=== PATIENT | male | born 1990 | race Caucasian/White ===

== ENCOUNTER → 2017-03-01 | Outpatient (CLI) | payer OTHER | LOC: FIMAGING 16:08 | PROVIDERS: ATTEND Family Medicine | DX: M51.37 Other intervertebral disc degeneration, lumbosacral region (principal); M51.27 Other intervertebral disc displacement, lumbosacral region ==

== ENCOUNTER 2018-01-07 04:10 | Emergency (ER) | payer OTHER ==
[2018-01-07 04:16] VITALS: RESP 18
[2018-01-07] MEDS ORDERED: IPRATROPIUM/ALBUTEROL 3 ML DEYVIAL IH ONE (04:27)
--- NOTE | 2018-01-07 05:39 | EDPHY ---
H & P Stated Complaint: COUGH AND DYSPNEA X 3 DAYS Time Seen by Provider: 01/07/18 04:54 HPI/ROS: Chief Complaint: Cough, shortness of breath HPI: 27-year-old male's had 3 days of cough, nasal congestion, sore throat, mild shortness of breath with coughing. He is bringing up yellowish to whitish sputum. Feels some tightness in his chest. Some subjective fevers and chills. No nausea or vomiting. No abdominal pain. Mild headache. He has no past medical history. Is up-to-date in his immunizations. ROS: 10 point Review of Systems is negative except as noted in the HPI. PMH: None Social History: No smoking, occasional alcohol, no recreational drug use Family History: non-contributory Physical Exam: Gen: Awake, Alert, No Distress HEENT: Nose: no rhinorrhea Eyes: PERRLA, EOMI Mouth: Moist mucosa Neck: Supple, no JVD Chest: nontender, diffuse expiratory wheezing, no focal rales or rhonchi Heart: S1, S2 normal, no murmur Abd: Soft, non-tender, no guarding Back: no CVA tenderness, no midline tenderness Ext: no edema, non-tender Skin: no rash Neuro: CN II-XII intact, Sensation grossly intact, Strength 5/5 in bilateral upper and lower extremities - Personal History Current Tetanus/Diphtheria Vaccine: Yes Current Tetanus Diphtheria and Acellular Pertussis (TDAP): Yes - Medical/Surgical History Hx Asthma: No Hx Chronic Respiratory Disease: No Hx Diabetes: No Hx Cardiac Disease: No Hx Renal Disease: No Hx Cirrhosis: No Hx Alcoholism: No Hx HIV/AIDS: No Hx Splenectomy or Spleen Trauma: No Other PMH: HERNIATED DISC L6 - Social History Smoking Status: Never smoked Constitutional: Initial Vital Signs Temperature (C) 37.1 C 01/07/18 04:12 Heart Rate 110 H 01/07/18 04:12 Respiratory Rate 18 01/07/18 04:12 Blood Pressure 149/93 H 01/07/18 04:12 O2 Sat (%) 92 01/07/18 04:12 O2 Delivery Mode Room Air Allergies/Adverse Reactions: No Known Allergies Allergy (Unverified 03/16/13 19:08) Home Medications: Medication Instructions Recorded Albuterol [Proventil Inhaler HFA 1 - 2 puffs IH Q4H PRN #1 mdi 01/07/18 (*)] Medical Decision Making - Diagnostics Imaging Results: Chest x-ray is negative for acute infiltrate per my interpretation. Imaging: I viewed and interpreted images myself ED Course/Re-evaluation: 27-year-old male presenting with cough, viral type symptoms. Influenza test is negative. Chest x-ray is negative for acute infiltrate. Symptoms consistent with bronchitis. Will start him on albuterol MDI. Tylenol Motrin. Follow up with primary care physician in 3-4 days if symptoms are not improving. - Data Points Laboratory Results: 01/07/18 01/07/18 04:26 04:26 Nasal Influenza A PCR NEGATIVE FOR FLU A (NEGATIVE) Nasal Influenza B PCR NEGATIVE FOR FLU B (NEGATIVE) Influenza A,B Rapid Cancelled Medications Given: Discontinued Medications Albuterol/Ipratropium (Duoneb) 3 ml IH EDNOW ONE Stop: 01/07/18 04:28 Last Admin: 01/07/18 04:39 Dose: 3 ml Departure - Departure Disposition: Home, Routine, Self-Care Clinical Impression: Acute bronchitis Condition: Good Instructions: Acute Bronchitis (ED) Additional Instructions: You may use the albuterol inhaler, 2 puffs every 4 hours as needed for cough or wheeze. Alternate acetaminophen (1000 mg) with ibuprofen (400 mg) every 4 hours as needed for fevers, chills, aches or pain. It is fine to use [id number] cough and cold medicines per package instructions. Follow up with primary care physician in 3-4 days if symptoms are not improving. Referrals: NONE *PRIMARY CARE P,. [Primary Care Provider] - As per Instructions Christine Roblero MD [Medical Doctor] - As per Instructions Prescriptions: Albuterol [Proventil Inhaler HFA (*)] 1 - 2 puffs IH Q4H PRN #1 mdi PRN Reason: Wheezing
[2018-01-07 06:00] VITALS: BP 130/79; PULSE 99; TEMP 98.4; O2SAT 94
== END 2018-01-07 05:59 | disposition home or self-care (01) ==
DX: J20.9 Acute bronchitis, unspecified (principal)